=== PATIENT | male | born 1975 | race Asian ===

== ENCOUNTER 2024-11-22 12:14 | Emergency (ER) | payer MEDICAID ==
[~2024-11-22] VITALS: Ht 167.6 cm; Wt 65.8 kg
[2024-11-22] MEDS ORDERED: HYDR30CR79 TP (13:00)
[2024-11-22 13:12] VITALS: BP 134/80; TEMP 98.2; O2SAT 99
[2024-11-22] MEDS ORDERED: POLY17PO4 PO (15:01)
== END 2024-11-22 13:12 | disposition home or self-care (01) ==
LOC: ER 12:21
DX: K64.8 Other hemorrhoids (principal); K59.00 Constipation, unspecified; Z87.19 Personal history of other diseases of the digestive system; Z60.2 Problems related to living alone